=== PATIENT | female | born 1965 | race Caucasian/White ===

== ENCOUNTER 2019-02-20 16:48 | Inpatient (IN) | payer BC, OTHER ==
[~2019-02-20] VITALS: Ht 165.1 cm; Wt 101.6 kg
[2019-02-20 16:50] VITALS: BP_SYST 132
--- NOTE | 2019-02-20 16:50 | NUR ---
Patient triaged and placed in waiting room. VSS and patient appears in no acute distress at this time. Accompanied by SELF, awaiting available bed, and MD notified of need for MSE.
--- NOTE | 2019-02-20 18:56 | NUR ---
PATIENT PRESENTS TO THE ER WITH HX OF BLURRED VISION AND NUMBNESS TO FACE AND TONGUE TODAY; STATES HER VISION IS CURRENTLY INTACT BUT NUMBNESS REMAINS; THE SYMPTOMS ARE RECURRENT OVER SEVERAL WEEKS; NO TRAUMA, NO OTHER REMARKABLE S/S; PATIENT TO ER #1 AT 1815 AND ERMD EVALUATION AT 1830
--- NOTE | 2019-02-20 20:15 | NUR ---
Dr. Mortensen bedside for Pt eval
[2019-02-20] MEDS ORDERED: ASPIRIN 325 MG TABLET PO ONE (20:30)
[2019-02-20] MEDS ORDERED: THYR15TA PO (20:42)
[2019-02-20] MEDS ORDERED: ESZO2TAB22 PO (20:42)
[2019-02-20 20:44] LABS: BASOPHILS # (AUTO) 0.1 K/uL (0.0-0.2); BASOPHILS % (AUTO) 0.8 % (0.0-2.0); EOSINOPHILS # (AUTO) 0.1 K/uL (0.0-0.4); EOSINOPHILS % (AUTO) 1.7 % (0.0-4.0); HEMATOCRIT 41.6 % (36-48); HEMOGLOBIN 14.2 g/dL (12.0-16.0); LYMPHOCYTES # (AUTO) 1.6 K/uL (1.0-5.5); LYMPHOCYTES % (AUTO) 21.5 % (20.5-51.5); MEAN CORPUSCULAR HEMOGLOBIN 29 pg (27-31); MEAN CORPUSCULAR HGB CONC 34 % (32-36); MEAN CORPUSCULAR VOLUME 86 fL (79.0-98.0); MONOCYTES # (AUTO) 0.6 K/uL (0.0-1.0); MONOCYTES % (AUTO) 7.8 % (1.7-9.3); NEUTROPHILS % (AUTO) 68.2 % (40.0-70.0); PLATELET COUNT (AUTO) 209 K/uL (130-430); RED BLOOD CELL COUNT(AUTO) 4.86 MIL/uL (4.2-6.2); RED CELL DISTRIBUTION WIDTH 13.9 % (9.0-15.0); WHITE BLOOD COUNT (AUTO) 7.3 K/uL (4.8-10.8)
[2019-02-20 20:46] LABS: CALCIUM 8.7 mg/dL (8.4-11.0); CREATININE 0.69 mg/dL (0.55-1.30); POTASSIUM 4.3 mmol/L (3.5-5.1)
[2019-02-20 20:50] LABS: PROTHROMBIN TIME 9.9 SECS (9.5-12.5)
[2019-02-20 20:51] LABS: ALBUMIN 3.6 g/dL (3.4-4.8); TOTAL BILIRUBIN 0.4 mg/dL (0.0-1.0)
--- NOTE | 2019-02-20 21:43 | NUR ---
pt ambulated with steady gait. no signs of acute distress. WIll cont. to monitor.
--- NOTE | 2019-02-20 21:43 | NUR ---
Patient will be admitted to care of Dr. Liang. Admitted to Tele unit. Will go to room 135. Belongings list completed. Complete and up to date summary report printed. SBAR report to be given at bedside with opportunity for questions.
--- NOTE | 2019-02-20 21:43 | NUR ---
Medication reconciliation completed with information provided by patient. Any prior medication reconciliation on file was reviewed and corrected.
--- NOTE | 2019-02-20 21:45 | NUR ---
Called [facility] for bed, reports room is not ready. Will call for update.
[2019-02-20 21:54] LABS: BILIRUBIN,URINE NEGATIVE (NEGATIVE); BLOOD, URINE 2+ (NEGATIVE); CLARITY/URINE CLEAR (CLEAR); COLOR,URINE YELLOW (YELLOW); GLUCOSE,URINE NEGATIVE (NEGATIVE); KETONES,URINE NEGATIVE (NEGATIVE); LEUKOCYTE ESTERASE ,URINE TRACE (NEGATIVE); NITRITE, URINE NEGATIVE (NEGATIVE); PROTEIN URINE NEGATIVE (NEGATIVE); UROBILINOGEN,URINE 0.2 (0.2-1.0)
--- NOTE | 2019-02-20 22:00 | NUR ---
Pt resting comfortably in bed, no signs of acute distress. Will cont. to monitor.
[2019-02-20 22:02] LABS: BACTERIA,URINE FEW /HPF (None Seen); MUCUS,URINE None Seen /LPF (None Seen); RBC,URINE 0-3 /HPF (0-3)
[2019-02-20 22:04] LABS: BARBITURATE, URINE NEGATIVE (NEG <=200); BENZODIAZEPINE, URINE NEGATIVE (NEG <=150); CANNABINOID, URINE NEGATIVE (NEG <=50); COCAINE, URINE NEGATIVE (NEG <=150); METHAMPHETAMINES SCREEN,URINE NEGATIVE (NEG <=500); OPIATE, URINE NEGATIVE (NEG <=100); PHENCYCLIDINE SCREEN,URINE NEGATIVE (NEG <=25); URINE AMPHETAMINE NEGATIVE (NEG <=500); URINE METHADONE NEGATIVE (NEG <=200); URINE OXYCODONE SCREEN NEGATIVE (NEG <=100)
[2019-02-20 22:05] LABS: UR TRICYCLIC ANTIDEPRESSANTS NEGATIVE (NEG <=300); URINE PROPOXYPHENE SCREEN NEGATIVE (NEG <=300)
--- NOTE | 2019-02-20 23:00 | NUR ---
Pt resting comfortably in bed, no signs of acute distress. Will cont. to monitor.
--- NOTE | 2019-02-20 23:28 | NUR ---
[facility] called back for bed assignment.
--- NOTE | 2019-02-20 23:53 | NUR ---
ADMISSION NOTE Received patient from ER via gurney. Patient admitted with diagnosis of TIA . Patient is awake, alert, oriented. Patient oriented to hospital room, call light, toileting, pain management and safety-teach back done. Patient informed that HERNANDEZ will be HER nurse and that their room number is 119B. Personal belongings checked and Belongings List documented. Call light within reach.
[2019-02-21] VITALS: BP_SYST 138
[2019-02-21] MEDS ORDERED: HYDROcodone/ACETAMIN 5-325 MG TAB (NORCO/ VICODIN) PO PRN (00:30)
[2019-02-21] MEDS ORDERED: HYDROcodone/ACETAMIN 10-325 MG TAB PO PRN (00:30)
[2019-02-21] MEDS ORDERED: ONDANSETRON HCL 4 MG/2 ML VIAL IVP PRN (00:30)
[2019-02-21] MEDS ORDERED: LORazepam 2 MG/ML VIAL IVP PRN (00:30)
[2019-02-21] MEDS ORDERED: ACETAMINOPHEN 325 MG TABLET PO PRN (00:30)
--- NOTE | 2019-02-21 00:30 | NUR ---
INITIAL NOTE AT INITIAL ASSESSMENT, PATIENT IS RESTING IN BED, STABLE, NO SIGNS OF RESPIRATORY DISTRESS. PATIENT VERBALIZES NO PAIN. PLAN OF CARE FOR THE NIGHT IS DISCUSSED WITH THE PATIENT AT THIS TIME. PATIENT IS SUCCESSFULLY DEMONSTRATES CORRECT USAGE OF OF CALL LIGHT. CALL LIGHT IS PLACED WITHIN REACH OF PATIENT'S HAND. BED IS LOCKED, ALARMED, AND AT THE LOWEST LEVEL. FALL, SAFETY, AND NEUROLOGICAL PRECAUTIONS WILL BE IN PLACE THROUGHOUT THE SHIFT.
--- NOTE | 2019-02-21 02:30 | NUR ---
NOTE PATIENT IS RESTING IN BED, STABLE, NO SIGNS OF RESPIRATORY DISTRESS. IS AT BEDSIDE. CALL LIGHT IS WITHIN REACH. BED IS LOCKED, ALARMED, AND AT THE LOWEST LEVEL.
--- NOTE | 2019-02-21 04:30 | NUR ---
NOTE PATIENT IS SLEEPING, STABLE, NO SIGNS OF RESPIRATORY DISTRESS. CALL LIGHT IS WITHIN REACH. BED IS LOCKED, ALARMED, AND AT THE LOWEST LEVEL.
--- NOTE | 2019-02-21 05:37 | NUR ---
CONSULTATION PAGED/CALLED Reason for Consultation: TIA Person Who was Notified: ALECIA Consulting Physician: DR. BENJAMIN Ordering Physician: THERESA SAENZ
--- NOTE | 2019-02-21 05:40 | NUR ---
NOTE PATIENT IS SLEEPING, STABLE, NO SIGNS OF RESPIRATORY DISTRESS. CALL LIGHT IS WITHIN REACH. BED IS LOCKED, ALARMED, AND AT THE LOWEST LEVEL.
--- NOTE | 2019-02-21 05:40 | NUR ---
CONSULTATION PAGED/CALLED Reason for Consultation: TIA Person Who was Notified: GENE Consulting Physician: TERRIE SAENZ Ordering Physician: THERESA SAENZ
[2019-02-21] MEDS: LEVOTHYROXINE SODIUM 0.15 MG TABLET PO SCH (06:23)
[2019-02-21] MEDS: NORMAL SALINE 5 ML DISP.SYRIN IVF SCH ×3 (06:25→22:00)
--- NOTE | 2019-02-21 06:51 | NUR ---
TIA (DX) TEACHING/ CLOSING NOTE TIA [id number] PACKET PROVIDED FOR THE PATIENT, PATIENT WAS EDUCATED AT THIS TIME ABOUT HER DIAGNOSIS. PATIENT SLEPT WELL THROUGHOUT THE SHIFT. AT THIS TIME, PATIENT IS RESTING IN BED, STABLE, NO SIGNS OF RESPIRATORY DISTRESS. CALL LIGHT IS PLACED WITHIN REACH OF PATIENT'S HAND. BED IS LOCKED, ALARMED, AND AT THE LOWEST LEVEL. FALL, SAFETY, AND NEUROLOGICAL PRECAUTIONS HAVEN BEEN IN PLACE THROUGHOUT THE SHIFT.
[2019-02-21 07:24] LABS: BASOPHILS % (AUTO) 0.5 % (0.0-2.0); EOSINOPHILS # (AUTO) 0.1 K/uL (0.0-0.4); HEMATOCRIT 38.8 % (36-48); HEMOGLOBIN 13.1 g/dL (12.0-16.0); LYMPHOCYTES # (AUTO) 1.7 K/uL (1.0-5.5); LYMPHOCYTES % (AUTO) 27.6 % (20.5-51.5); MEAN CORPUSCULAR HEMOGLOBIN 29 pg (27-31); MEAN CORPUSCULAR HGB CONC 34 % (32-36); MEAN CORPUSCULAR VOLUME 85 fL (79.0-98.0); MONOCYTES # (AUTO) 0.5 K/uL (0.0-1.0); MONOCYTES % (AUTO) 8.5 % (1.7-9.3); NEUTROPHILS # (AUTO) 3.9 K/uL (1.8-7.7); NEUTROPHILS % (AUTO) 61.4 % (40.0-70.0); PLATELET COUNT (AUTO) 182 K/uL (130-430); RED BLOOD CELL COUNT(AUTO) 4.56 MIL/uL (4.2-6.2); RED CELL DISTRIBUTION WIDTH 14.2 % (9.0-15.0); WHITE BLOOD COUNT (AUTO) 6.3 K/uL (4.8-10.8)
--- NOTE | 2019-02-21 07:30 | NUR ---
INITIAL NOTE PT AWAKE, RESTING IN BED, DENIES ANY DIZZINESS OR DISCOMFORT. PT ALERT AND ORIENTED. IV SALINE LOCKED. CALL LIGHT WITHIN REACH, BED IN LOW AND LOCKED POSITION WITH BED ALARM ON.
[2019-02-21 07:32] LABS: CALCIUM 8.2 mg/dL (8.4-11.0); CREATININE 0.65 mg/dL (0.55-1.30)
[2019-02-21 08:00] VITALS: BP_SYST 127
[2019-02-21] MEDS ORDERED: ZOLPIDEM TARTRATE 5 MG TABLET PO PRN (08:15)
[2019-02-21] MEDS: ASPIRIN 81 MG TAB.CHEW PO SCH (08:35)
--- NOTE | 2019-02-21 09:30 | NUR ---
RN ROUNDS PT EATING BREAKFAST. DENIES ANY DIZZINESS OR BLURRED VISION. WILL CONTINUE TO MONITOR.
--- NOTE | 2019-02-21 11:36 | NUR ---
RN ROUNDS PT AWAKE, DENIES ANY BLURRED VISION OR DIZZINESS. WILL CONTINUE TO MONITOR.
[2019-02-21 12:33] VITALS: BP_SYST 137
--- NOTE | 2019-02-21 13:30 | NUR ---
RN ROUNDS PT SITTING ON BEDSIDE CHAIR EATING LUNCH. PT DENIES ANY BLURRED VISION, DIZZINESS, OR NUMBNESS.
--- NOTE | 2019-02-21 15:30 | NUR ---
RN ROUNDS PT SITTING UP IN BEDSIDE CHAIR TALKING WITH ROOMATE. PT DENIES ANY DIZZINESS, BLURRED VISION OR NUMBNESS. WILL CONTINUE TO MONITOR.
[2019-02-21 16:19] VITALS: BP_SYST 136
--- NOTE | 2019-02-21 17:49 | NUR ---
RN ROUNDS PT AMBULATING HALLWAY, STEADY GAIT. DENIES ANY DIZZINESS, DOUBLE VISION OR NUMBNESS. WILL CONTINUE TO MONITOR
--- NOTE | 2019-02-21 18:34 | NUR ---
CLOSING NOTE PT SITTING AT EDGE OF BED EATING DINNER. PT DENIES ANY DIZZINESS, DOUBLE VISION, OR NUMBNESS. IV SALINE LOCKED. CALL LIGHT WITHIN REACH, BED IN LOW AND LOCKED POSITION. PT EDUCATED ON USE AND SAFETY OF BED ALARM, PT VERBALIZED UNDERSTANDING, PT REFUSING BED ALARM AT THIS TIME. ALL NEEDS MET THROUGHOUT SHIFT. WILL CONTINUE TO MONITOR UNTIL PT CARE IS ENDORSED TO SUPERMARKET MANAGER RN.
[2019-02-21 20:00] VITALS: BP_SYST 135
--- NOTE | 2019-02-21 22:10 | NUR ---
Patient in bed. No acute distress noted. Will continue to monitor.
[2019-02-22] VITALS: BP_SYST 116
[2019-02-22] MEDS: NORMAL SALINE 5 ML DISP.SYRIN IVF SCH (04:59)
[2019-02-22] MEDS: LEVOTHYROXINE SODIUM 0.15 MG TABLET PO SCH (04:59)
--- NOTE | 2019-02-22 06:17 | NUR ---
No change to patient's current assessment.
--- NOTE | 2019-02-22 07:30 | NUR ---
INITIAL NOTE PT RESTING IN BED, NO ACUTE DISTRESS NOTED, BREATHING EVEN AND UNLABORED. CALL LIGHT WITHIN REACH, BED IN LOW AND LOCKED POSITION. IV SALINE LOCKED.
[2019-02-22 08:00] VITALS: BP_SYST 106
[2019-02-22] MEDS: ASPIRIN 81 MG TAB.CHEW PO SCH (08:23)
--- NOTE | 2019-02-22 09:30 | NUR ---
RN ROUND PT AWAKE, ALERT, DENIES ANY BLURRED VISION, DIZZINESS, OR NUMBNESS. PT SITTING UP AT EDGE OF BED EATING BREAKFAST.
[2019-02-22] MEDS ORDERED: ASA81 PO (09:45)
[2019-02-22 10:21] VITALS: BP_SYST 106
--- NOTE | 2019-02-22 10:40 | NUR ---
DISCHARGE NOTE DISCHARGE PACKET AND INSTRUCTIONS WITH PT. PT AOX4, DENIES ANY BLURRED, VISION OR NUMBNESS. ALL BELONGINGS WITH PT. IV CATHETER REMOVED, NO BLEEDING, CATHETER INTACT. ID HOSPITAL BAND REMOVED. EDUCATED PT ON SAFETY AND WHEELCHAIR ESCORT. PT VERBALIZED UNDERSTANDING, REFUSING WHEELCHAIR. PT AMBULATES WITH STEADY GAIT. ESCORTED PT TO HOSPITAL PARKING LOT WITH .
== END 2019-02-22 10:40 | disposition home or self-care (01) | DRG 69 ==
LOC: SED 16:48 → STU 21:30
PROVIDERS: ADMIT Preventive Medicine Preventive Medicine/Occupational Environmental Medicine; ATTEND Preventive Medicine Preventive Medicine/Occupational Environmental Medicine
DX: G45.9 Transient cerebral ischemic attack, unspecified (principal); E87.1 Hypo-osmolality and hyponatremia; E03.9 Hypothyroidism, unspecified; G47.00 Insomnia, unspecified; R73.9 Hyperglycemia, unspecified; Z79.899 Other long term (current) drug therapy; Z79.82 Long term (current) use of aspirin
CPT/HCPCS: 36415; 70450-TC; 80048; 80053; 80307; 81000-TC; 82550-TC; 85025; 85610-TC; 85730-TC; 93005; 93306; 93880; 99285; G0378; G0482